=== PATIENT | female | born 2000 | race Caucasian/White ===

== ENCOUNTER 2025-01-13 10:31 | Outpatient (AMB) | payer OTHER, SELFPAY ==
--- NOTE | 2025-01-13 09:58 | A.OFFPC_ITS ---
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 Fertility Rivet Passer Required: No Accompanied by: Self / Same As Patient Allergies No Known Allergies Allergy (Verified 01/13/25 09:58) Tobacco use date assessed: 01/13/25 Dental Screening Dental Screen Date: 01/13/25 Did you have a dental visit in the last 12 months?: Yes Did you have a dental problem in the last 6 months where you did not have access to dental care?: No Was dental information given to patient?: Patient has dentist HPI HPI Comments History of Present Illness Details Consent Patient was informed and verbally consented to the use of an ambient scribe for clinic note documentation during this visit. History of Present Illness The patient is a 24-year-old female presenting with infertility concerns. Infertility: The patient has been experiencing infertility for two years, with two miscarriages reported. Extensive testing was conducted in [place], including hysteroscopy, but no definitive cause was identified. Hormone testing was not performed, which the patient believes could be significant. The patient has been tracking ovulation and engaging in regular intercourse during fertile periods. The patient has a history of using an intrauterine device (IUD) for six to seven years, which was removed due to cramping. Constipation: The patient reports a lifelong history of constipation, previously managed with various medications without success. Currently, the patient manages symptoms effectively with lemon water, experiencing no further issues. Tinnitus: The patient reports intermittent tinnitus, described as a ringing in the ears, which has been present since childhood. The tinnitus is not constant and varies in intensity. Hearing Loss: The patient reports difficulty hearing, particularly high-pitched sounds, and has a family history of hearing loss. The patient has not undergone formal audiometric testing but plans to pursue further evaluation. 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 - Housing: Recently moved and settled in to a new home, previously lived in [facility]. - Education: Holds a bachelor's degree i n [employer] administration. - Family status: , with a history of two miscarriages. Family History: - Mother: Hearing loss, required hearing aids at age 27. - Grandfather: Major hearing problems. Review of Systems - Gastrointestinal: Reports chronic cons tipation, currently managed with lemon water. - Reproductive: Reports regular menstrua l cycles with slight variability post- miscarriage, denies current use of contraceptives. - Neurological: Reports intermittent tin nitus, denies headaches or dizziness. - Auditory: Reports difficulty hearing h igh-pitched sounds, denies acute hearing loss. 10-point ROS reviewed and negative excep t as noted in HPI Past Medical History - Infertility: Two years duration with t wo miscarriages, extensive testing conducted without definitive cause identified. - Constipation: Lifelong history, previo usly treated with medications, currently managed with lemon water. - Tinnitus: Intermittent since childhood , not formally evaluated. - Hearing loss: Difficulty with high-pit ched sounds, family history of hearing impairment. Health Maintenance - Hormone testing planned for infertilit y evaluation. - Audiogram recommended for hearing eval uation. Physical Exam General: Well-appearing, in no acute distress. Vital signs: Within normal limits. HEENT: Normocephalic, atraumatic. PERRLA, EOMI. Conjunctiva clear, sclera anicteric. Oropharynx clear, mucous membranes moist. TMs intact bilaterally. Neck: Supple, no lymphadenopathy, no thyromegaly, no JVD or carotid bruits. Cardiovascular: RRR, normal S1/S2, no murmurs, rubs, or gallops. Peripheral pulses 2+ and symmetric. No edema. Respiratory: Lungs clear to auscultation bilaterally, no wheezes, rales, or rhonchi. Normal effort. Abdomen: Soft, non-tender, non-distended. Normoactive bowel sounds. No hepatosplenomegaly, no masses. MSK: Full range of motion, no joint swelling or deformity. Normal gait. Skin: Warm, dry, intact. No rashes, lesions, or pallor. Neuro: Alert and oriented x3. Cranial nerves II-XII intact. Strength 5/5 throughout. Sensation intact. Reflexes 2+ symmetric. Normal coordination and gait. Psych: Appropriate mood and affect. Normal judgment and insight. Plan 1. Infertility - Plan to conduct comprehensive hormone testing including prolactin, progesterone, luteinizing hormone, follicle-stimulating hormone, estradiol, and anti-M?llerian hormone. - Schedule hormone testing on specific d ays of the menstrual cycle to ensure accuracy. - Consider referral to a reproductive sp ecialist if initial tests are inconclusive. 2. Constipation - Continue current management with lemon water as it is effective for the patient. 3. Tinnitus - Referral to an clerical associate for fu rther evaluation and management. 4. Hearing Loss - Audiogram to be performed to assess th e extent of hearing loss. - Consideration of genetic factors due t o family history of hearing loss. Discussion Notes During the consultation, I discussed the patient's infertility concerns and the importance of hormone testing to identify potential underlying causes. We reviewed the plan to conduct hormone tests on specific days of the menstrual cycle and the potential need for a referral to a reproductive specialist if re sults are inconclusive. I also addressed the patient's hearing concerns, recommending an audiogram and possible referral to an clerical associate for further evaluation. Patient Instructions - Schedule hormone testing on the third day of your menstrual cycle and progesterone testing on the day. - Continue using lemon water for constip ation management. - Follow up with an foreign car mechanic for an a udiogram to assess hearing. - Consider consulting a reproductive spe cialist if hormone tests do not provide clear answers. Medical Decision Making The decision to conduct comprehensive hormone testing was based on the patient's history of infertility and lack of prior hormone evaluation. Given the patient's family history of hearing loss and reported symptoms, an audiogram was deemed necessary to assess the extent of hearing impairment. The plan includes potential referral to specialists if initial evaluations do not yield conclusive results, ensuring a thorough approach to the patient's concerns. Total time spent caring for the patient today was 30 minutes. This includes time spent before the visit reviewing the chart, time spent documenting, and time spent reviewing laboratory results, diagnostic imaging, medications, performing a medically necessary evaluation, counseling on diagnoses, care coordination, ordering appropriate tests, ordering appropriate medications. [facility] Medical History (Updated 01/13/25 @ 11:14 by Johnny Aleman MD) Bilateral tinnitus Infertility, female Family History (Updated 01/13/25 @ 10:39 by Fazal Vinson MA) Father High cholesterol Mother Hypothyroidism Social History Housing: House Patient Tobacco Use Status: Never used Tobacco service: No Current occupational status: unemployed Cognitive needs: No Hearing needs: No Vision needs: Yes (rx glasses) Questionnaire PHQ-9 Over the last 2 weeks, how often have you been bothered by any of the following problems? 1. Little interest or pleasure in doing things: not at all 2. Feeling down, depressed, or hopeless: not at all 3. Trouble falling or staying asleep, or sleeping too much: not at all 4. Feeling tired or having little energy: not at all 5. Poor appetite or overeating: not at all 6. Feeling bad about yourself - or that you are a failure or have let yourself or your family down: not at all 7. Trouble concentrating on things, such as reading the newspaper or watching television: not at all 8. Moving or speaking so slowly that other people could have noticed. Or the opposite - being so fidgety or restless that you have been moving around a lot more than usual: not at all 9. Thoughts that you would be better off or of hurting yourself in some way: not at all Total score: 0 Source: Developed by Drs. Martell Lott, Ingrid Troncoso, Samy Morris and colleagues, with an educational marcelino from [employer]. Thrive Questionnaire Date Thrive assessed: 01/13/25 I am a: Patient What is your living situation today?: I have a steady place to live Within the past 12 months, did the food you bought not last and you didn't have the money to get more?: Never true Within the past 12 months, did you worry whether your food would run out before you got money to buy more?: Never true Do you have trouble paying for medicines?: No Do you have trouble getting transportation to medical appointments?: No Do you have trouble paying your heating and electricity bill?: No Do you have trouble taking care of your child, family member or friend?: No Do you have trouble with day-to-day activities such as bathing, preparing meals, shopping, managing finances, etc.?: No Are you currently unemployed and looking for a job?: Yes Are you interested in more education?: No Please select the resources that you would like help with: None Currently or been in a relationship where the following occur: No concerns reported THRIVE Score: 0 AUDIT C Alcohol Use Questionnaire (AUDIT-C) 1. How often do you have a drink containing alcohol?: Monthly or less 2. How many drinks containing alcohol do you have on a typical day when you are drinking?: 1 or 2 3. How often do you have six or more drinks on one occasion?: Never Total Score: 1 MICAELA-7 AMB Questionnaire MICAELA-7 Date MICAELA - 7 assessed: 01/13/25 Feeling nervous, anxious, or on edge: 0 = Not at all Not being able to stop or control worryin = Not at all Worrying too much about different things: 0 = Not at all Trouble relaxin = Not at all Being so restless that it is hard to sit still: 0 = Not at all Becoming easily annoyed or irritable: 0 = Not at all Feeling afraid as if something awful might happen: 0 = Not at all Total MICAELA-7 score (0-4 normal; 5-9 mild; 10-14 moderate; 15-21 severe): 0 Source: Developed by Drs. Martell Lott, Ingrid Troncoso, Samy Morris and colleagues, with an educational marcelino from [employer]. Physical exam (Primary Care) Vital Signs: Last Vital Signs Temp 98.1 F 01/13/25 10:37 Pulse 91 01/13/25 10:37 Resp 16 01/13/25 10:37 BP 114/78 01/13/25 10:37 Pulse Ox 94 01/13/25 10:37 Oxygen Delivery Method Room Air 01/13/25 10:37 BMI result Body Mass Index 26.1 Tobacco/Smoking Status: Tobacco use Status Tobacco use date assessed 01/13/25 01/13/25 10:00 Patient Tobacco Use Status Never used Tobacco 01/13/25 10:06 PHQ-9: PHQ-9 Score PHQ-9: Total score 0 01/13/25 10:06 Thrive Assessment: Date of Thrive Assessment Date Thrive assessed 01/13/25 01/13/25 10:00 Currently or been in a relationship where the following occur: No concerns reported Coding Level of Care Code New Pt Level 4 (58787) Diagnoses Infertility, female Bilateral tinnitus H93.13 Constipation K59.00 Hearing loss H91.90 Assessment & Plan Assessment & Plan (1) Infertility, female: Category: Medical Plan: (2) Bilateral tinnitus: Code(s): H93.13 - Tinnitus, bilateral Category: Medical (3) Constipation: Code(s): K59.00 - Constipation, unspecified (4) Hearing loss: Code(s): H91.90 - Unspecified hearing loss, unspecified ear Plan Orders: Orders Follicle Stimulating Hormone Today Z13.9 - Encounter for screening, unspecified Lutenizing Hormone Today Z13.9 - Encounter for screening, unspecified Anti-Mullerian Hormone-Female Today Z13.9 - Encounter for screening, unspecified DHEA Sulfate Today L68.0 - Hirsutism, Z13.9 - Encounter for screening, unspecified Testosterone, Free/Total Today L68.0 - Hirsutism, Z13.9 - Encounter for screening, unspecified 17 Hydroxyprogesterone Today L68.0 - Hirsutism, Z13.9 - Encounter for screening , unspecified Complete Blood Count Auto Diff Today Z13.9 - Encounter for screening, unspecified Hemoglobin A1c Today Z13.9 - Encounter for screening, unspecified Hepatitis B Surface Antibody Today Z13.9 - Encounter for screening, unspecified Hepatitis B Surface Antigen Today Z13.9 - Encounter for screening, unspecified TSH reflex Free T4 Today Z13.9 - Encounter for screening, unspecified UA CC w/rflx Micro + Cult Today Z13.9 - Encounter for screening, unspecified Estradiol Ultra Sensitive Today Z13.9 - Encounter for screening, unspecified Prolactin Today Z13.9 - Encounter for screening, unspecified Progesterone Today Z13.9 - Encounter for screening, unspecified Comprehensive Met. Panel Today Z13.9 - Encounter for screening, unspecified Hepatitis C Antibody Today Z13.9 - Encounter for screening, unspecified HIV Ab/Ag Today Z13.9 - Encounter for screening, unspecified Lipid Panel Today Z13.9 - Encounter for screening, unspecified Magnesium Today Z13.9 - Encounter for screening, unspecified Vitamin B12 and Folate Today Z13.9 - Encounter for screening, unspecified Vitamin D 1,25 dihydroxy Today Z13.9 - Encounter for screening, unspecified Referrals Ear/Nose/Throat Referral H93.13 - Tinnitus, bilateral Audiology Referral H91.90 - Unspecified hearing loss, unspecified ear, H93.13 - Tinnitus, bilateral
[2025-01-13 10:37] VITALS: BP 114/78; PULSE 91; RESP 16; TEMP 36.7; O2SAT 94; BMI 26.1
== END 2025-01-13 11:17 | disposition home or self-care (01) ==
LOC: HO.HMCFMS 10:32
PROVIDERS: Visit Provider Student in an Organized Health Care Education/Training Program
DX: H93.13 Tinnitus, bilateral (principal); K59.00 Constipation, unspecified; H91.90 Unspecified hearing loss, unspecified ear

== ENCOUNTER → 2025-01-13 10:31 | Outpatient (BNVA) | payer OTHER, SELFPAY | PROVIDERS: Visit Provider Student in an Organized Health Care Education/Training Program | DX: N97.9 Female infertility, unspecified (principal); H93.13 Tinnitus, bilateral; K59.00 Constipation, unspecified; H91.90 Unspecified hearing loss, unspecified ear; Z13.30 Encounter for screening examination for mental health and behavioral disorders, unspecified; Z13.39 Encounter for screening examination for other mental health and behavioral disorders | CPT/HCPCS: 96127; 99202 ==

== ENCOUNTER 2025-01-24 06:36 | Outpatient (REF) | payer OTHER, SELFPAY | END 2025-01-24 06:37 | disposition home or self-care (01) | LOC: HO.HMGCLDS 06:36 | PROVIDERS: PCP Student in an Organized Health Care Education/Training Program; Visit Provider Student in an Organized Health Care Education/Training Program | DX: Z13.89 Encounter for screening for other disorder (principal); L68.0 Hirsutism | CPT/HCPCS: 36415; 83498; 84144 ==

== ENCOUNTER 2025-01-31 13:30 | Outpatient (REF) | payer OTHER, SELFPAY ==
[2025-01-31 16:17] LABS: MANUAL DIFF FLAG NO
[2025-01-31 16:25] LABS: Hematocrit 39.0 % (37.0-47.0); Hemoglobin 13.4 g/dl (12.0-16.0); Imm Gran Abs Auto 0.03 X10*3/uL (0.00-0.03); Imm Gran Pct Auto 0.4 % (0.0-0.4); Lymphocytes Absolute Auto 2.2 X10*3/uL (1.2-4.9); Mean Corpuscular HGB Conc 34.4 g/dl (31.0-35.0); Mean Corpuscular Hemoglobin 32.0 pg (27.0-33.0); Mean Corpuscular Volume 93.1 fL (80.0-98.0); NRBC Abs Auto 0.000 X10*3/uL (0.0-0.012); NRBC Pct Auto 0.0 /100WBC (0.0-0.2); Platelet Count 256 X10*3/uL (160-400); Red Blood Count 4.19 X10*6/uL (4.20-5.50); White Blood Count 7.4 X10*3/uL (4.8-10.8)
[2025-01-31 16:45] LABS: Alanine Aminotransferase 27 U/L (0-31); Albumin Level 5.0 g/dL (3.5-5.0); Alkaline Phosphatase 37 U/L (39-117); Anion Gap 9 (12-20); Aspartate Amino Transferase 24 U/L (5-31); Blood Urea Nitrogen 13 mg/dL (9-16); Calcium 9.4 mg/dL (8.4-10.2); Carbon Dioxide 28 mmol/L (22-29); Chloride 107 mmol/L (96-108); Cholesterol 175 mg/dL (<200); Estimated Glomerular Filt Rate > 60; HDL Cholesterol 54 mg/dL (>40); Magnesium 2.2 mg/dL (1.6-2.6); Potassium 3.9 mmol/L (3.3-5.1); Sodium 140 mmol/L (135-145); Total Protein 7.5 g/dL (6.5-8.0); Triglycerides 123 mg/dL (<150)
[2025-01-31 17:06] LABS: Appearance Urine Clear; Glucose Urine UA Negative (Negative); PH 6.0 (5.0-9.0); Specific Gravity - Urine <= 1.005 (1.005-1.025); UMIC TRIGGER UACC YES
[2025-01-31 17:09] LABS: Folate 10.4 ng/mL (> or = 4.0); Vitamin B12 525 pg/mL (200-900)
[2025-02-01 07:33] LABS: Follicle Stimulating Hormone 6.6 mIU/mL
[2025-02-02 04:47] LABS: HBS Num1 17.25 mIU/mL (0-7.99); HBsAGNum1 0.37 S/CO (0.00-0.99); HIV Num 1 0.05 S/CO (0.00-0.99); Hepatitis B Surface Antigen Negative (Negative); ~HepC Num1 0.08 S/CO (0.00-0.79); ~Hepatitis B Surface Antibody REACTIVE (Nonreactive); ~Hepatitis C Antibody Nonreactive (Nonreactive)
[2025-02-04 13:47] LABS: Anti-Mullerian Hormone-Female 5.28 ng/mL (0.69-13.39)
[2025-02-06 14:19] LABS: VITAMIN D (1,25 OH) D3 28 pg/mL; Vit D (1,25-Dihydroxy) Total 28 pg/mL (18-72); Vitamin D (1,25 OH) D2 <8 pg/mL
[2025-02-07 22:33] LABS: Testosterone, Free 2.3 pg/mL (0.1-6.4)
[2025-02-08 02:38] LABS: Estradiol Ultra Sensitive 23 pg/mL
== END 2025-01-31 13:31 | disposition home or self-care (01) ==
LOC: HO.HMGCLDS 13:30
PROVIDERS: PCP Student in an Organized Health Care Education/Training Program; Visit Provider Student in an Organized Health Care Education/Training Program
DX: Z13.1 Encounter for screening for diabetes mellitus (principal); Z13.21 Encounter for screening for nutritional disorder; Z13.6 Encounter for screening for cardiovascular disorders; L68.0 Hirsutism; Z13.29 Encounter for screening for other suspected endocrine disorder
CPT/HCPCS: 36415; 80053; 80061; 81001; 81003; 82166; 82607; 82627; 82652; 82670; 82746; 83001; 83002; 83036; 83735; 84146; 84402; 84403; 84443; 85025; 86706; 86803; 87340; 87389

== ENCOUNTER 2025-02-11 09:13 | Outpatient (AMB) | payer OTHER, SELFPAY ==
--- NOTE | 2025-02-11 09:15 | A.OFFPC_ITS ---
Vital Signs 02/11/25 09:16 Height 5 ft 7.72 in Weight 171 lb BMI 26.2 BP 110/61 Blood Pressure Location Lt brachial Position Sitting Respiration 16 Pulse 80 Pulse Source Pulse Oximeter Temp 98.1 F Temp Source Oral Pulse Oximetry (%) 100 Oxygen Delivery Method Room Air Intake Visit Reasons: f/u after labs Branch Rental Manager Required: No Accompanied by: Self / Same As Patient Allergies No Known Allergies Allergy (Verified 02/11/25 09:16) Tobacco use date assessed: 02/11/25 Dental Screening Dental Screen Date: 02/11/25 Did you have a dental visit in the last 12 months?: Yes Did you have a dental problem in the last 6 months where you did not have access to dental care?: No Was dental information given to patient?: Patient has dentist HPI HPI Comments History of Present Illness Details History of Present Illness The patient is a 24-year-old female presenting for a follow-up visit to review lab results regarding infertility. Female Infertility: The patient reports she and her partner have been trying to conceive for two years. She had a normal Pap smear in March of this year. She previously visited a fertility clinic in [facility] with her . Unintentional Weight Gain: The patient reports having gained approximately 15 pounds recently. Medications: - Vitamin D 2000 units daily. Social History: - Family planning: The patient has been actively trying to conceive for two years. - Weight management: The patient reports a 15-pound weight gain. Diagnostic Results: - Lab results were reviewed and were lar dena normal. - CBC: White blood cells, red blood cell s, hemoglobin, hematocrit, and platelets are normal. - CMP: Sodium, potassium, chloride, leticia l function, glucose, hemoglobin A1c, calcium, and magnesium are normal. - Hepatic function panel: Total bilirubi n, AST, ALT, alkaline phosphatase, and total protein are normal. - Lipid panel: Triglycerides, total chol esterol, LDL, and HDL are normal. - Vitamins: Vitamin B12, vitamin D, and folate are within normal limits. - Thyroid studies: Normal. - Hormones: Estradiol, FSH, luteinizing hormone, prolactin, total testosterone, free testosterone, and 17-hydroxyprogesterone are normal. - Progesterone: May be slightly low. - Urinalysis: Normal. - Pap smear (March of current year): N ormal. Past Medical History - Infertility for two years. - Prior ENT referral was given, but appo intment availability is delayed until May. Health Maintenance - Last Pap smear was in March of the and was normal. - Lab work was reviewed and was unremark able. - The patient is taking vitamin D 2000 u nits daily, and her level is within normal limits. [facility] Medical History (Updated 02/11/25 @ 09:52 by Johnny Aleman MD) Overweight (BMI 25.0-29.9) Bilateral tinnitus Infertility, female Family History Father High cholesterol Mother Hypothyroidism Social History Housing: House Patient Tobacco Use Status: Never used Tobacco service: No Current occupational status: unemployed Cognitive needs: No Hearing needs: No Vision needs: Yes (rx glasses) Questionnaire PHQ-9 Over the last 2 weeks, how often have you been bothered by any of the following problems? 1. Little interest or pleasure in doing things: not at all 2. Feeling down, depressed, or hopeless: not at all 3. Trouble falling or staying asleep, or sleeping too much: not at all 4. Feeling tired or having little energy: not at all 5. Poor appetite or overeating: not at all 6. Feeling bad about yourself - or that you are a failure or have let yourself or your family down: not at all 7. Trouble concentrating on things, such as reading the newspaper or watching television: not at all 8. Moving or speaking so slowly that other people could have noticed. Or the opposite - being so fidgety or restless that you have been moving around a lot more than usual: not at all 9. Thoughts that you would be better off or of hurting yourself in some way: not at all Total score: 0 Depression Screening Interpretation: Negative Depression Screening Done: Yes Source: Developed by Drs. Martell Lott, Ingrid Troncoso, Samy Morris and colleagues, with an educational marcelino from [employer]. Thrive Questionnaire Date Thrive assessed: 02/11/25 I am a: Patient What is your living situation today?: I have a steady place to live Within the past 12 months, did the food you bought not last and you didn't have the money to get more?: Never true Within the past 12 months, did you worry whether your food would run out before you got money to buy more?: Never true Do you have trouble paying for medicines?: No Do you have trouble getting transportation to medical appointments?: No Do you have trouble paying your heating and electricity bill?: No Do you have trouble taking care of your child, family member or friend?: No Do you have trouble with day-to-day activities such as bathing, preparing meals, shopping, managing finances, etc.?: No Are you currently unemployed and looking for a job?: Yes Are you interested in more education?: No Please select the resources that you would like help with: None Currently or been in a relationship where the following occur: No concerns reported THRIVE Score: 0 AUDIT C Alcohol Use Questionnaire (AUDIT-C) 1. How often do you have a drink containing alcohol?: Monthly or less 2. How many drinks containing alcohol do you have on a typical day when you are drinking?: 1 or 2 3. How often do you have six or more drinks on one occasion?: Never Total Score: 1 MICAELA-7 AMB Questionnaire MICAELA-7 Date MICAELA - 7 assessed: 02/11/25 Feeling nervous, anxious, or on edge: 0 = Not at all Not being able to stop or control worryin = Not at all Worrying too much about different things: 0 = Not at all Trouble relaxin = Not at all Being so restless that it is hard to sit still: 0 = Not at all Becoming easily annoyed or irritable: 0 = Not at all Feeling afraid as if something awful might happen: 0 = Not at all Total MICAELA-7 score (0-4 normal; 5-9 mild; 10-14 moderate; 15-21 severe): 0 Source: Developed by Drs. Martell Lott, Ingrid Troncoso, Samy Morris and colleagues, with an educational marcelino from [employer]. Review of Systems Narrative Review of Systems - Constitutional: Reports a 15-pound weight gain. - Genitourinary/Endocrine: Reports inability to conceive after trying for two years. 10-point ROS reviewed and negative except as noted in HPI Physical exam (Primary Care) Vital Signs: Last Vital Signs Temp 98.1 F 02/11/25 09:16 Pulse 80 02/11/25 09:16 Resp 16 02/11/25 09:16 BP 110/61 02/11/25 09:16 Pulse Ox 100 02/11/25 09:16 Oxygen Delivery Method Room Air 02/11/25 09:16 BMI result Body Mass Index 26.2 Tobacco/Smoking Status: Tobacco use Status Tobacco use date assessed 02/11/25 02/11/25 09:17 Patient Tobacco Use Status Never used Tobacco 02/11/25 09:17 PHQ-9: PHQ-9 Score PHQ-9: Total score 0 02/11/25 09:52 Depression Screening Interpretation: Negative Thrive Assessment: Date of Thrive Assessment Date Thrive assessed 02/11/25 02/11/25 09:17 Currently or been in a relationship where the following occur: No concerns reported Narrative Physical Exam General: Well-appearing, in no acute distress. Vital signs: Within normal limits. HEENT: Normocephalic, atraumatic. PERRLA, EOMI. Conjunctiva clear, sclera anicteric. Oropharynx clear, mucous membranes moist. TMs intact bilaterally. Neck: Supple, no lymphadenopathy, no thyromegaly, no JVD or carotid bruits. Cardiovascular: RRR, normal S1/S2, no murmurs, rubs, or gallops. Peripheral pulses 2+ and symmetric. No edema. Respiratory: Lungs clear to auscultation bilaterally, no wheezes, rales, or rhonchi. Normal effort. Abdomen: Soft, non-tender, non-distended. Normoactive bowel sounds. No hepatosplenomegaly, no masses. MSK: Full range of motion, no joint swelling or deformity. Normal gait. Skin: Warm, dry, intact. No rashes, lesions, or pallor. Neuro: Alert and oriented x3. Cranial nerves II-XII intact. Strength 5/5 throughout. Sensation intact. Reflexes 2+ symmetric. Normal coordination and gait. Psych: Appropriate mood and affect. Normal judgment and insight. Office Procedures Flu Questionnaire Does the patient have a severe egg allergy?: No Does the patient have severe life threatening allergies?: No Does the patient have a fever or illness today?: No Has the patient ever had Guillain-Mentor Syndrome?: No Has the patient ever had any past reaction to a flu shot?: No Immunizations Fluarix [id number] (PF) 45 mcg (15 mcg x 3)/0.5 mL IM syringe Performing Provider: Johnny Aleman MD [place] [facility] Documented (not given) by: Marina Duarte CMA on 02/11/25 09:25 Reason Not Given: Patient Refused Coding Level of Care Code Est Pt Level 3 (16013) Diagnoses Infertility, female Overweight (BMI 25.0-29.9) E66.3 Assessment & Plan Assessment & Plan (1) Infertility, female: Category: Medical (2) Overweight (BMI 25.0-29.9): Code(s): E66.3 - Overweight Category: Medical Plan Consent Patient was informed and verbally consented to the use of an ambient scribe for clinic note documentation during this visit. Plan 1. Female Infertility - The patient's lab results were reviewed and were mostly normal, though progesterone may be slightly low. - A referral will be provided to a reproductive specialist for further evaluation. - The referral is for a provider the patient requested, Dr. Suzie Vizcarra in [place]. - The patient was advised to confirm the provider is in her [facility] network. - A copy of her lab results will be provided for her specialist appointment. - If her requires a referral, he should send a message. - Follow up in six months, or sooner with any updates. 2. Vitamin D Supplementation - The patient's vitamin D level is within normal limits. - Recommended to continue taking vitamin D 2000 units daily as it is working. Discussion Notes I reviewed the patient's comprehensive lab results with her, noting that they were almost entirely within normal limits, including her CBC, CMP, liver function, lipids, thyroid, and most hormones. I mentioned that her progesterone level may be slightly low. We discussed that given her history of trying to conceive for two years, the next step is a referral to a reproductive specialist. I am providing a referral to the specialist she requested, Dr. Suzie Vizcarra, and advised her to check with her insurance and to take a copy of her labs to the appointment. I also advised her to continue her current vitamin D supplement as it has been effective. I requested she follow up in six months. Patient Instructions - Your lab results are mostly normal. - Keep taking your Vitamin D 2000 units every day, as it is working well. - I am giving you a referral to see a fertility specialist. - You requested a referral for Dr. Suzie Vizcarra; please call her office to see if she accepts your insurance. - If Dr. Vizcarra cannot see you, you can use this referral to find another specialist. - We will give you a printed copy of your lab results to take with you to the specialist. - If your needs a referral, please have him message me through the portal. - Please follow up here in six months. Medical Decision Making The patient is a 24-year-old female here for a follow-up to review lab results as part of a workup for female infertility, ongoing for two years. The [facility] lab panel was ordered to assess for common endocrine, metabolic, and hematologic causes of infertility. The results were reassuring and largely within normal limits, ruling out significant issues with thyroid function, diabetes, hyperandrogenism, and other common hormonal imbalances. A potentially low progesterone level was noted, which may be a contributing factor. Given the duration of infertility and the unremarkable initial workup, the appropriate next step is a referral to a reproductive endocrinology and infertility specialist for further evaluation and management. A referral was placed per the patient's request, and she was advised to continue her vitamin D supplementation as it has effectively normalized her levels. Total Time Statement 20 min Total time spent caring for the patient today includes pre-visit chart review, documentation, review of laboratory and diagnostic imaging results, medication reconciliation, medically necessary evaluation, counseling on diagnoses, care coordination, ordering appropriate tests and medications, review of tests performed by other providers, reporting test results to the patient, and communication with other healthcare providers. Orders: Orders Influenza [id number] Immunization Today Z23 - Encounter for immunization Referrals INSURANCE AGENTS SUPERVISOR Referral Z12.4 - Encounter for screening for malignant neoplasm of cervix
[2025-02-11 09:16] VITALS: BP 110/61; PULSE 80; RESP 16; TEMP 36.7; O2SAT 100; BMI 26.2
== END 2025-02-11 09:38 | disposition home or self-care (01) ==
LOC: HO.HMCFMS 09:14
PROVIDERS: Visit Provider Student in an Organized Health Care Education/Training Program
DX: Z23 Encounter for immunization (principal); E66.3 Overweight

== ENCOUNTER → 2025-02-11 09:13 | Outpatient (BNVA) | payer OTHER, SELFPAY | PROVIDERS: Visit Provider Student in an Organized Health Care Education/Training Program | DX: N97.9 Female infertility, unspecified (principal); E66.3 Overweight; Z68.26 Body mass index [BMI] 26.0-26.9, adult; Z23 Encounter for immunization; Z13.30 Encounter for screening examination for mental health and behavioral disorders, unspecified | CPT/HCPCS: 90471; 99212 ==

== ENCOUNTER 2025-03-05 11:38 | Outpatient (AMB) | payer OTHER, SELFPAY ==
--- NOTE | 2025-03-05 11:43 | A.OFFPC_ITS ---
Vital Signs 03/05/25 11:48 Height 5 ft 7.72 in Weight 173 lb BMI 26.5 BP 109/69 Blood Pressure Location Lt brachial Position Sitting Respiration 18 Pulse 85 Pulse Source Pulse Oximeter Temp 97.9 F Temp Source Oral Pulse Oximetry (%) 100 Oxygen Delivery Method Room Air Intake Visit Reasons: Confirm Intake Note: confirm Soa Integration Architect Required: No Accompanied by: Self / Same As Patient Allergies No Known Allergies Allergy (Verified 03/05/25 11:47) Tobacco use date assessed: 02/11/25 Dental Screening Dental Screen Date: 02/11/25 [facility] Medical History (Updated 03/05/25 @ 12:07 by Johnny Aleman MD) 5 weeks gestation of Overweight (BMI 25.0-29.9) Bilateral tinnitus Infertility, female Family History Father High cholesterol Mother Hypothyroidism Social History (Updated 03/05/25 @ 11:48 by Roverto Morgan CMA) Housing: House Alcohol intake: never Patient Tobacco Use Status: Never used Tobacco Use of substances other than those prescribed or required for medical reasons: No service: No Current occupational status: unemployed Cognitive needs: No Hearing needs: No Vision needs: Yes (rx glasses) Questionnaire PHQ-9 Over the last 2 weeks, how often have you been bothered by any of the following problems? 1. Little interest or pleasure in doing things: not at all 2. Feeling down, depressed, or hopeless: not at all 3. Trouble falling or staying asleep, or sleeping too much: not at all 4. Feeling tired or having little energy: not at all 5. Poor appetite or overeating: not at all 6. Feeling bad about yourself - or that you are a failure or have let yourself or your family down: not at all 7. Trouble concentrating on things, such as reading the newspaper or watching television: not at all 8. Moving or speaking so slowly that other people could have noticed. Or the opposite - being so fidgety or restless that you have been moving around a lot more than usual: not at all 9. Thoughts that you would be better off or of hurting yourself in some way: not at all Total score: 0 Depression Screening Interpretation: Negative Depression Screening Done: Yes [id number] - PHQ-9 Billing: Yes Source: Developed by Drs. Martell Lott, Ingrid Troncoso, Samy Morris and colleagues, with an educational marcelino from [employer]. Thrive Questionnaire Date Thrive assessed: 01/13/25 I am a: Patient What is your living situation today?: I have a steady place to live Within the past 12 months, did the food you bought not last and you didn't have the money to get more?: Never true Within the past 12 months, did you worry whether your food would run out before you got money to buy more?: Never true Do you have trouble paying for medicines?: No Do you have trouble getting transportation to medical appointments?: No Do you have trouble paying your heating and electricity bill?: No Do you have trouble taking care of your child, family member or friend?: No Do you have trouble with day-to-day activities such as bathing, preparing meals, shopping, managing finances, etc.?: No Are you currently unemployed and looking for a job?: Yes Are you interested in more education?: No Please select the resources that you would like help with: None Currently or been in a relationship where the following occur: No concerns reported THRIVE Score: 0 AUDIT C Alcohol Use Questionnaire (AUDIT-C) 1. How often do you have a drink containing alcohol?: Monthly or less 2. How many drinks containing alcohol do you have on a typical day when you are drinking?: 1 or 2 3. How often do you have six or more drinks on one occasion?: Never Total Score: 1 MICAELA-7 AMB Questionnaire MICAELA-7 Date MICAELA - 7 assessed: 02/11/25 Feeling nervous, anxious, or on edge: 0 = Not at all Not being able to stop or control worryin = Not at all Worrying too much about different things: 0 = Not at all Trouble relaxin = Not at all Being so restless that it is hard to sit still: 0 = Not at all Becoming easily annoyed or irritable: 0 = Not at all Feeling afraid as if something awful might happen: 0 = Not at all Total MICAELA-7 score (0-4 normal; 5-9 mild; 10-14 moderate; 15-21 severe): 0 Source: Developed by Ceasar Dunbaret B.W. Aba, Samy Morris and colleagues, with an educational marcelino from [employer]. MICAELA-7 Assessment Billing MICAELA-7 Assessment Tool: MICAELA-7 Assessment 28188 Physical exam (Primary Care) Vital Signs: Last Vital Signs Temp 97.9 F 03/05/25 11:48 Pulse 85 03/05/25 11:48 Resp 18 03/05/25 11:48 BP 109/69 03/05/25 11:48 Pulse Ox 100 03/05/25 11:48 Oxygen Delivery Method Room Air 03/05/25 11:48 BMI result Body Mass Index 26.5 Tobacco/Smoking Status: Tobacco use Status Tobacco use date assessed 02/11/25 03/05/25 11:50 Patient Tobacco Use Status Never used Tobacco 03/05/25 11:50 PHQ-9: PHQ-9 Score PHQ-9: Total score 0 03/05/25 11:57 Depression Screening Interpretation: Negative Thrive Assessment: Date of Thrive Assessment Date Thrive assessed 01/13/25 03/05/25 11:50 Currently or been in a relationship where the following occur: No concerns reported Results AMB Test Urine AMB Test Urine Positive Last Edit by Roverto Morgan CMA on 03/05 11:59 AMB Test Urine AMB Test Urine Positive Last Edit by Marina Duarte CMA on 03/05/25 13:34 Results Reviewed Results Reviewed: Laboratory Last Values Tst Clinic Positive 03/05/25 11:56 Coding Additional Codes MICAELA-7 Assessment Billing - MICAELA-7 Assessment Tool: MICAELA-7 Assessment 85614 ([id number]) PHQ-9 - 32976 - PHQ-9 Billing: Yes ([id number]) Assessment & Plan Assessment & Plan Orders: Orders AMB HCG Urine Test Today O26.21 - care for patient with recurrent loss, first trimester HCG Quantitative Today O26.21 - care for patient with recurrent loss, first trimester AMB HCG Urine Test Today Z32.01 - Encounter for test, result positive US OB <= 14 weeks fetus Today Z34.90 - Encounter for supervision of normal , unspecified, unspecified trimester Referrals REGIONAL TRANSPORTATION MANAGER Referral Z3A.01 - Less than 8 weeks gestation of Medications: New vit no.[id number] 28 mg iron- 800 mcg (Classic ) 1 tab PO .QD 90 tabs 0RF
[2025-03-05 11:48] VITALS: BP 109/69; PULSE 85; RESP 18; TEMP 36.6; O2SAT 100; BMI 26.5
== END 2025-03-05 12:12 | disposition home or self-care (01) ==
PROVIDERS: PCP Student in an Organized Health Care Education/Training Program; Visit Provider Student in an Organized Health Care Education/Training Program
DX: Z32.01 Encounter for pregnancy test, result positive (principal); O26.21 Pregnancy care for patient with recurrent pregnancy loss, first trimester

== ENCOUNTER 2025-03-05 11:38 | Outpatient (REF) | payer OTHER, SELFPAY | END 2025-03-05 11:39 | disposition home or self-care (01) | LOC: HO.HKASLDS 11:38 | PROVIDERS: PCP Student in an Organized Health Care Education/Training Program; Visit Provider Student in an Organized Health Care Education/Training Program | DX: O26.21 Pregnancy care for patient with recurrent pregnancy loss, first trimester (principal); O99.281 Endocrine, nutritional and metabolic diseases complicating pregnancy, first trimester; E66.3 Overweight; Z3A.01 Less than 8 weeks gestation of pregnancy; Z13.31 Encounter for screening for depression | CPT/HCPCS: 36415; 81025; 84702; 96127; 99212 ==